=== PATIENT | male | born 1955 | race Caucasian/White ===

== ENCOUNTER 2016-10-26 12:00 | Emergency (ER) | payer OTHER, MEDICARE ==
[~2016-10-26] VITALS: Ht 177.8 cm; Wt 97.5 kg
--- NOTE | 2016-10-26 12:53 | ED CARDIAC/CP/PALPITATIONS ---
History of Present Illness General Chief Complaint: Chest Pain Stated Complaint: LEFT SIDED CHEST PAIN SINCE YESTERDAY W/ SOB Source: patient Exam Limitations: no limitations Vital Signs & Intake/Output Vital Signs & Intake/Output Vital Signs Date Time Temp Pulse Resp B/P B/P Pulse O2 O2 Flow FiO2 Mean Ox Delivery Rate 10/26 1356 72 16 117/73 97 Room Air 10/26 1338 88 16 119/70 98 Room Air 10/26 1330 98 Room Air 10/26 1328 90 124/63 10/26 1321 95 16 120/63 98 Room Air 10/26 1315 90 125/67 10/26 1211 97.0 111 18 158/88 98 Room Air Allergies Coded Allergies: codeine (Intermediate, NAUSEA 10/26/16) Reconcile Medications Atorvastatin Calcium 80 MG TABLET 1 TAB PO DAILY CHOLESTEROL (Reported) Canagliflozin/Metformin HCl (Invokamet 150-1,000 MG Tablet) 150 MG-1,000 MG TABLET 1 TAB PO BID DIABETES (Reported) Lisinopril 20 MG TABLET 1 TAB PO DAILY HEART (Reported) Triage Note: TRIAGE: PATIENT TO ER FROM HOME REPORTS +R SIDE CP ONSET YESTERDAY, INTERMITTENT STABBING 10/10 W/ CONSTANT 4/10 PAIN. EKG SINUS TACH, HR 111. PATIENT REPORTS +SOB, NO ACUTE DISTRESS, LUNGS CTA. PATIENT ALSO REPORTING "BUT I WAS ALSO CHOPPING WOOD YESTERDAY, BUT I DO HAVE A FAMILY HX SD." HX HTN, DM, HIGH CHOLESTEROL. Triage Nurses Notes Reviewed? yes Onset: Abrupt Duration: day(s): (2), intermittent (SHARP STABBING), waxing and waning Timing: recent history Quality/Severity: moderate, sharp, stabbing Location: R SIDED Radiation: no radiation Activities at Onset: none Prior Chest Pain/Card Workup: no prior chest pain Nitro Today/Relief: no nitro taken today Aspirin Today: no aspirin today Associated Symptoms: shortness of breath HPI: 61-year-old male with history of hypertension and high cholesterol diabetes presents to ER for evaluation with right-sided chest pain for the past 2 days intermittent in nature however sharp stabbing severe 11 out of 10. He states these episodes last for a few seconds and resolve on their own. He states at rest there is a 4 out of 10 aching right-sided chest pain nonradiating. Patient states the symptoms came on after he was chopping a tree root, however denies any known specific injury or trauma during that episode. He states that the pain makes him diaphoretic. He is not taken anything or sought care until today when his daughter made him come to the ER. He states that his hypertension diabetes have been well-controlled. He did not take an aspirin this morning. His family history is significant in that his father had 2 heart attacks one in his 60s and 80s. He has never been seen by emergency department clinician before. Patient reports the pain makes him feel short of breath however denies pain with inspiration no cough hemoptysis abdominal pain fever chills. He denies tobacco alcohol or drug use. Symptoms are not worse with exertion or change in position. (TREMAYNE PADILLA) Past History Travel History Traveled to [place] past 21 day No Medical History Any Pertinent Medical History? 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 No (TREMAYNE PADILLA) Review of Systems Review of Systems Constitutional: Reports: see HPI. All Other Systems: Reviewed and Negative Comments Review of systems: See HPI, All other systems negative. Constitutional, no chills no fever, no malaise HEENT: No visual changes no sore throat no congestion Cardiovascular: No chest pain , no palpitation , Skin: no rashes, no change in skin Respiratory: No dyspnea no cough no sputum GI: No nausea no vomiting, no diarrhea : No dysuria Muscle skeletal: No joint pain, no back pain, no neck pain, Neurologic: No numbness, no headache Psych: No stress Heme/endocrine: No bruising Immunology: No lymphadenopathy (TREMAYNE PADILLA) Physical Exam Physical Exam General Appearance: well developed/nourished, no apparent distress, alert, awake Cardiovascular: regular rate/rhythm Comments: Well-developed well-nourished person in no acute distress HEENT: Normal EENT exam; PERRL, EOMI, no nystagmus. HEAD is atraumatic. moist mucous membranes. Neck: Supple, no lymphadenopathy, normal range of motion Back: Nontender, no CVA tenderness. Full range of motion Cardiovascular: Regular rate and rhythms no murmurs rubs or gallops, normal JVP Respiratory: Chest nontender.There were no bony deformities, no asymmetry. No respiratory distress. Patient speaking in full complete sentences. Breath sounds clear to auscultation bilaterally: NO W/R/R Abdomen: Soft, nontender nondistended, no appreciable organomegaly. Normal bowel sounds. No rebound/guarding, No appreciable enlargement of the abdominal aorta, No ascites. Extremity: No edema, full range of motion of extremities, normal and equal pulses bilaterally, 5 out of 5 strength noted to bilateral upper and lower extremities Neuro: Alert oriented x3, motor sensory normal, There were no obvious focal neurologic abnormalities. Skin: No appreciable rash on exposed skin, skin is warm and dry. Psych: Mood and affect is normal, memory and judgment is normal. Core Measures ACS in differential dx? Yes Severe Sepsis Present: No Septic Shock Present: No (LONDON BAEZ,TREMAYNE) Progress Differential Diagnosis: AMI, aortic dissection, atrial fibrillation, cholecystitis, musculoskeletal pain, myocarditis, pancreatitis, pericarditis, pneumonia, pneumothorax, PSVT, pulmonary embolism, PUD/GERD, PVCs/PACs, rib fracture, unstable angina Plan of Care: Orders Procedure Date/time Status Telemetry/Religious Leader 10/26 1253 Active TROPONIN LEVEL 10/26 1253 Complete D-DIMER 10/26 1253 Complete COMPREHENSIVE METABOLIC PANEL 10/26 1253 Complete CBC WITHOUT DIFFERENTIAL 10/26 1253 Complete EKG 10/26 1202 Active Laboratory Tests 10/26/16 1307: Anion Gap 12, Estimated GFR > 60, BUN/Creatinine Ratio 20.0, Glucose 201 H, Calcium 9.5, Total Bilirubin 1.2, AST 32, ALT 55, Alkaline Phosphatase 82, Troponin I < 0.01, Total Protein 6.5, Albumin 4.3, Globulin 2.2, Albumin/ Globulin Ratio 2.0, D-Dimer < 200, CBC w Diff NO MAN DIFF REQ, RBC 5.31, MCV 88.2, MCH 29.5, RDW 15.0 H, MPV 7.4, Gran % 76.4 H, Lymphocytes % 18.1 L, Monocytes % 4.1, Eosinophils % 1.2, Basophils % 0.2, Absolute Granulocytes 7.7 H, Absolute Lymphocytes 1.8, Absolute Monocytes 0.4, Absolute Eosinophils 0.1, Absolute Basophils 0, PUBS MCHC 33.5 PT MED WITH NTIRO, ASA, LABS AND CXR ORDERED, CASE D/W DR BURGESS AGREES WITH PLAN Patient reports improvement in symptoms with nitroglycerin, given the duration of his symptoms have been present for greater than 48 hours case was discussed with Dr. Edwards he does not believe the patient requires observation status versus repeat troponin given negative troponin negative d-dimer symptoms most likely musculoskeletal given his recent chopping of the cheek roots prior to the episode beginning. 10/26/2016 2:45:08 PMI discussed with the patient at length all of their results. He denies any symptoms at this time. I had an extensive conversation regarding need for close follow up with their primary care physician as well as emergency department clinician Dr. Edwards whom his father sees this week as well as return precautions. I answered all of their questions, they feel comfortable with the plan and follow-up care. (LONDON BAEZ,TREMAYNE) Diagnostic Imaging: Viewed by Me: Radiology Read. Discussed w/RAD: Radiology Read. Radiology Impression: PATIENT: ABHI WHALEY JR PRESENT AGE: 61 PATIENT ACCOUNT NO: [id number] : 59 LOCATION: [facility] ORDERING PHYSICIAN: TREMAYNE BAEZ SERVICE DATE: 10/26/16-0152 EXAM TYPE: RAD - XRY-PORTABLE CHEST XRAY EXAMINATION: XR PORTABLE CHEST CLINICAL INFORMATION: Right-sided chest pain and shortness of breath COMPARISON: CXR from 08/22/2011 TECHNIQUE: Portable AP view of the chest was obtained. FINDINGS: Lungs are symmetrically expanded and clear. Trachea is midline position. Cardiac silhouette is normal in size. This no pulmonary edema, pleural effusion or pneumothorax. The hilar contours are normal. The visualized bones are intact. IMPRESSION: No acute cardiopulmonary disease. DICTATED BY: ZAC GUERRIER MD DATE/TIME DICTATED:10/26/161417 NEWSPERSON:TORI DATE/TIME TRANSCRIBED:10/26/161417 CONFIDENTIAL, DO NOT COPY WITHOUT APPROPRIATE AUTHORIZATION. <Electronically signed in Other Vendor System> SIGNED BY: ZAC GUERRIER MD 10/26/16 7897 Initial ED EKG: STACH AT 100, NO ACUTE ST SEG CHANGES, LAD Prior EKG: unchanged (07/2011) Rhythm Strip: normal sinus rhythm (TREMAYNE PADILLA) Departure Departure Disposition: HOME OR SELF CARE Condition: Stable Clinical Impression Primary Impression: Atypical chest pain Referrals: SALENA RIOS,RICH Gilman (PCP/Family) Additional Instructions: follow up with your pmd as well as emergency department clinician dr edwards on friday. rest, continue taking all of your medication daily as well as a baby aspirin daily. return if your symptoms worsen or you have any other concerns Departure Forms: Customer Survey General Discharge Information (TREMAYNE PADILLA) PA/DEVICE SALES CONSULTANT Co-Sign Statement Statement: ED Attending supervision documentation- [] I saw and evaluated the patient. I have also reviewed all the pertinent lab results and diagnostic results. I agree with the findings and the plan of care as documented in the PA's/DEVICE SALES CONSULTANT's documentation. [X] I have reviewed the ED Record and agree with the PA's/DEVICE SALES CONSULTANT's documentation. [] Additions or exceptions (if any) to the PAs/DEVICE SALES CONSULTANT's note and plan are summarized below: [] (JENIFER RIOS,KYLER Zepeda) Critical Care Note Critical Care Note Critical Care Time: non-applicable (TREMAYNE PADILLA)
[2016-10-26 13:11] LABS: ABSOLUTE BASOPHIL COUNT 0 /CUMM (0.0-0.2); ABSOLUTE EOSINOPHIL COUNT 0.1 /CUMM (0.0-0.7); ABSOLUTE GRANULOCYTE CT 7.7 /CUMM (1.4-6.5); ABSOLUTE LYMPH COUNT 1.8 /CUMM (1.2-3.4); ABSOLUTE MONOCYTE COUNT 0.4 /CUMM (0.10-0.60); BASOPHIL % 0.2 % (0.0-2.0); EOSINOPHIL % 1.2 % (0-5); GRANULOCYTE % 76.4 % (42.2-75.2); HEMATOCRIT 46.8 % (42-52); MEAN CORPUSCULAR HGB 29.5 PG (27.0-31.0); MEAN CORPUSCULAR HGB CONC 33.5 G/DL (33.0-37.0); MEAN CORPUSCULAR VOLUME 88.2 FL (80.0-94.0); MEAN PLATELET VOLUME 7.4 FL (7.4-10.4); PLATELET COUNT 261 /CUMM (130-400); RED BLOOD CELL CT 5.31 /CUMM (4.70-6.10); WHITE BLOOD CELL COUNT 10.1 /CUMM (4.8-10.8)
[2016-10-26 13:56] VITALS: BP 117/73
[2016-10-26] MEDS ORDERED: LISINOPRIL20 M1 PO (14:12)
[2016-10-26] MEDS ORDERED: ATORVASTATIN CA80 M1 PO (14:13)
[2016-10-26] MEDS ORDERED: INVOKAMET 150-1 EACH PO (14:13)
--- NOTE | 2016-10-26 14:23 | RADIOLOGY REPORT ---
EXAMINATION: XR PORTABLE CHEST CLINICAL INFORMATION: Right-sided chest pain and shortness of breath COMPARISON: CXR from 08/22/2011 TECHNIQUE: Portable AP view of the chest was obtained. FINDINGS: Lungs are symmetrically expanded and clear. Trachea is midline position. Cardiac silhouette is normal in size. This no pulmonary edema, pleural effusion or pneumothorax. The hilar contours are normal. The visualized bones are intact. IMPRESSION: No acute cardiopulmonary disease.
== END 2016-10-26 14:40 ==
LOC: ERH 12:00
PROVIDERS: Physician Assistant Medical
DX: R07.89 Other chest pain (principal)
CPT/HCPCS: 93005; 93010; J3490